=== PATIENT | female | born 2000 | race Caucasian/White ===

== ENCOUNTER → 2025-02-11 10:11 | Outpatient (REF) | payer OTHER, SELFPAY | LOC: PAVMRI 10:11 | PROVIDERS: ATTENDING PHYSICIAN Student in an Organized Health Care Education/Training Program; FAMILY PHYSICIAN Hospitalist | DX: S83.249A Other tear of medial meniscus, current injury, unspecified knee, initial encounter (principal); M25.562 Pain in left knee | CPT/HCPCS: 73721 ==